=== PATIENT | female | born 1935 | race African-American/Black ===

== ENCOUNTER 2021-11-18 19:03 | Inpatient (IN) | payer MEDICARE, OTHER ==
[~2021-11-18] VITALS: Ht 165.1 cm; Wt 64.0 kg
--- NOTE | 2021-11-18 19:34 | NUR ---
PT BIB BY SON FROM HOME REFFERED BY DR. OSEGUERA FOR ABDNOMAL LABS (ELEVATED D DIMER). PT IS A/O X3, NO SOB OR LABORED BREATHING. CLEAR SPEECH, COMPLETE SENTENCES. DENIES ANY CP/PRESSURE. NO GI/ DISTRESS.
--- NOTE | 2021-11-18 19:35 | NUR ---
DR. CRUZ AT BEDSIDE, MSE IN PROGRESS.
[2021-11-18] MEDS ORDERED: CYANOCOBALAMIN 1000 MCG/ML VIAL IM ONE (19:45)
--- NOTE | 2021-11-18 19:59 | NUR ---
LAB AT BEDSIDE.
[2021-11-18] MEDS ORDERED: CYANOCOBALAMIN 1000 MCG/ML VIAL ONE (20:05)
[2021-11-18 20:07] LABS: HEMATOCRIT 38.6 % (31.2-41.9); MEAN CORPUSCULAR HEMOGLOBIN 30.6 uug (24.7-32.8); MEAN CORPUSCULAR VOLUME 90.8 fL (75.5-95.3); PLATELET COUNT (AUTO) 450 K/uL (179-408)
[2021-11-18 20:14] LABS: CREATININE 1.2 mg/dL (0.6-1.3); POTASSIUM 4.6 mmol/L (3.5-5.1)
[2021-11-18] MEDS ORDERED: SWABABLE VALVE TRANSFER SET EA MC ONE (21:15)
[2021-11-18] MEDS ORDERED: IV NORMAL SALINE 250 ML IV ONE (21:15)
[2021-11-18] MEDS ORDERED: IOHEXOL 350 100 ML INFUS..BTL ONE (21:15)
--- NOTE | 2021-11-18 21:23 | NUR ---
PT TAKEN DOWN TO CT.
--- NOTE | 2021-11-18 21:42 | NUR ---
PT RETURNED FROM CT.
--- NOTE | 2021-11-18 21:56 | NUR ---
US (MARKUS) AT BEDSIDE.
[2021-11-18] MEDS ORDERED: TEMAZEPAM 15 MG CAPSULE PO PRN (22:15)
[2021-11-18] MEDS ORDERED: ONDANSETRON 4 MG/2 ML VIAL IV PRN (22:15)
[2021-11-18] MEDS ORDERED: ACETAMINOPHEN 325 MG TABLET PO PRN (22:15)
--- NOTE | 2021-11-18 23:02 | NUR ---
Patient and patient's son refused to have covid test to be done.
--- NOTE | 2021-11-18 23:52 | NUR ---
GAVE REPORT TO ANGEL ATWOOD.
--- NOTE | 2021-11-19 00:25 | NUR ---
PT AGREED TO DO COVID TEST, PENDING RESULTS.
--- NOTE | 2021-11-19 01:39 | NUR ---
ASSISTED PT TO RESTROOM, STEADY GAIT.
--- NOTE | 2021-11-19 02:00 | NUR ---
Pt. admitted to TELE , under care of Dr. OSEGUERA DX: CHF/ GENERALIZED WEAKNESS Belongs List completed
[2021-11-19 02:22] VITALS: BP 137/89
[2021-11-19 05:46] VITALS: BP 129/86
--- NOTE | 2021-11-19 05:59 | NUR ---
Admitted to Tele, Afib on monitor. Denies pain or SOB at this time. Pt alert and able to make needs known. Son at bedside with permission from Dr. Hills to let patient stay throughout the night. IV site intact. Will endorse to day shift.
[2021-11-19 06:38] LABS: HEMATOCRIT 37.5 % (31.2-41.9); MEAN CORPUSCULAR HEMOGLOBIN 30.4 uug (24.7-32.8); MEAN CORPUSCULAR VOLUME 90.5 fL (75.5-95.3); PLATELET COUNT (AUTO) 409 K/uL (179-408)
[2021-11-19] MEDS ORDERED: PANTOPRAZOLE SODIUM 40 MG TABLET.DR PO SCH (07:00)
[2021-11-19 07:09] LABS: BILIRUBIN,TOTAL 0.8 mg/dL (0.2-1.0); CREATININE 0.9 mg/dL (0.6-1.3); MAGNESIUM 2.1 mg/dL (1.8-2.4); PHOSPHOROUS 3.7 mg/dL (2.5-4.9); POTASSIUM 4.3 mmol/L (3.5-5.1); TOTAL PROTEIN, SERUM 6.8 g/dL (6.4-8.2); URIC ACID 8.1 mg/dL (2.6-6.0)
[2021-11-19] MEDS ORDERED: DILTIAZEM HCL CD 120 MG CAP.SR.24H PO SCH (09:30)
[2021-11-19] MEDS ORDERED: APIXABAN 5 MG TABLET PO SCH (10:00)
[2021-11-19] MEDS ORDERED: CYANOCOBALAMIN 1000 MCG/ML VIAL IM SCH (10:00)
[2021-11-19 11:59] VITALS: BP 122/74
--- NOTE | 2021-11-19 12:18 | NUR ---
patient son name Cecile came by to visit patient and he ( cecile ) took patient's money, wallet,and bag of home medication to his home.
[2021-11-19] MEDS ORDERED: VERA240C2 PO (14:19)
[2021-11-19] MEDS ORDERED: ENAL20TA18 PO (14:19)
[2021-11-19] MEDS ORDERED: ATOR20TA PO (14:19)
[2021-11-19] MEDS ORDERED: LATA2.5D15 LEFTEYE (14:19)
[2021-11-19] MEDS ORDERED: TRIA1TAB3 PO (14:19)
[2021-11-19] MEDS ORDERED: ASPI81TA31 PO (14:19)
[2021-11-19 16:08] VITALS: BP 125/70
[2021-11-19] MEDS ORDERED: APIX5TAB PO (16:33)
[2021-11-19] MEDS ORDERED: ATOR10TA PO (16:33)
[2021-11-19] MEDS ORDERED: DILT120C87 PO (16:33)
[2021-11-19] MEDS ORDERED: CYAN10006 IM (16:33)
[2021-11-19] MEDS ORDERED: ENAL-80 PO (16:33)
[2021-11-19] MEDS ORDERED: ALLO100T PO (16:34)
--- NOTE | 2021-11-19 17:16 | NUR ---
patient is discharging home, son is picking her up, discharge instructions given to patient and son, patient and son verbalized understanding of it, IV removed, ID removed, belongings are accounted and signed. patient is in stable condition, no distress noted.
--- NOTE | 2021-11-19 18:28 | NUR ---
patient discharged home, assisted safely to the car
[2021-11-19] MEDS ORDERED: DOCUSATE SODIUM 100 MG CAPSULE PO SCH (21:00)
== END 2021-11-19 18:25 | disposition home or self-care (01) | DRG 640 ==
LOC: ER 19:08 → TELE3 11-19 00:05
PROVIDERS: ADMIT Internal Medicine; ATTEND Internal Medicine
DX: E53.8 Deficiency of other specified B group vitamins (principal); N17.0 Acute kidney failure with tubular necrosis; I50.31 Acute diastolic (congestive) heart failure; D68.59 Other primary thrombophilia; I48.91 Unspecified atrial fibrillation; I11.0 Hypertensive heart disease with heart failure; M10.9 Gout, unspecified; Z95.5 Presence of coronary angioplasty implant and graft; E78.5 Hyperlipidemia, unspecified; Z87.891 Personal history of nicotine dependence; E11.9 Type 2 diabetes mellitus without complications; I25.10 Atherosclerotic heart disease of native coronary artery without angina pectoris; Z74.09 Other reduced mobility; R53.1 Weakness; M25.571 Pain in right ankle and joints of right foot; Z20.822 Contact with and (suspected) exposure to COVID-19
CPT/HCPCS: 36415; 70030-TC; 71045; 71275; 83735; 84100; 84443; 84550; 85025; 85730; 93005; 93307; 97161; G0378; J3420; J7050; Q9967